=== PATIENT | female | born 1995 ===

== ENCOUNTER 2022-04-01 09:10 | Outpatient (CLI) | payer OTHER | END 2022-04-01 11:15 | disposition home or self-care (01) | LOC: PRENATAL 09:10 | PROVIDERS: ATTEND Obstetrics & Gynecology Maternal & Fetal Medicine | DX: O35.0XX0 Maternal care for (suspected) central nervous system malformation in fetus, not applicable or unspecified (principal); O35.3XX0 Maternal care for (suspected) damage to fetus from viral disease in mother, not applicable or unspecified; O34.219 Maternal care for unspecified type scar from previous cesarean delivery; Z3A.25 25 weeks gestation of pregnancy ==

== ENCOUNTER 2022-04-07 09:36 | Emergency (ER) | payer OTHER ==
[~2022-04-07] VITALS: Ht 157.5 cm; Wt 57.6 kg
[2022-04-07] MEDS ORDERED: PRENA1 CHEW TA1.4 MG (10:38)
== END 2022-04-07 13:20 | disposition home or self-care (01) ==
LOC: ER 09:36
DX: O99.512 Diseases of the respiratory system complicating pregnancy, second trimester (principal); Z3A.26 26 weeks gestation of pregnancy; J06.9 Acute upper respiratory infection, unspecified; U07.1 COVID-19

== ENCOUNTER 2022-06-27 22:07 | Inpatient (IN) | payer OTHER ==
[~2022-06-27] VITALS: Ht 157.5 cm; Wt 64.4 kg
[~2022-06-27 22:07] MED LIST: PRENA1 CHEW TA1.4 MG
[2022-06-27] MEDS ORDERED: IRON236 MG PO (22:40)
[2022-07-01] MEDS ORDERED: SIMETHICONE80 MG PO (18:57)
[2022-07-01] MEDS ORDERED: COLACE100 MG PO (18:57)
[2022-07-01] MEDS ORDERED: IBU800 MG PO (18:57)
== END 2022-07-01 19:07 | disposition home or self-care (01) | DRG 788 ==
LOC: LDR 22:07 → OB/GYN 06-28 13:20
PROVIDERS: ADMIT Obstetrics & Gynecology; ATTEND Obstetrics & Gynecology
PROC: 4A1HXCZ Monitoring of Products of Conception, Cardiac Rate, External Approach (ICD-10-PCS; 2022-06-27)
PROC: 10D00Z1 Extraction of Products of Conception, Low, Open Approach (ICD-10-PCS; principal; 2022-06-28 09:00)
DX: O34.211 Maternal care for low transverse scar from previous cesarean delivery (principal); Z3A.38 38 weeks gestation of pregnancy; Z20.822 Contact with and (suspected) exposure to COVID-19; Z37.0 Single live birth

== ENCOUNTER 2025-04-19 05:11 | Day surgery (SDC) | payer OTHER ==
[2025-04-11 09:59] LABS: PH,URINE 7.5 (5.0-8.0); URINE APPEARANCE Clear; URINE BILIRRUBIN Negative (NEGATIVE); URINE BLOOD Negative; URINE COLOR Yellow; URINE GLUCOSE Negative (NEGATIVE); URINE KETONE Negative (NEGATIVE); URINE LEUKOCYTE Negative; URINE NITRATE Negative; URINE PROTEIN Negative (NEGATIVE); URINE UROBILINOGEN 0.2 E.U./dl
[2025-04-11 10:04] LABS: URINE BACTERIA 4797.6 uL (0.0-1933); URINE EPITHELIAL CELLS 44.4 uL (0.0-38.8); URINE RBC 6.1 uL (0.0-20.8); URINE WBC 24.3 uL (0.0-23.2)
[2025-04-11 10:13] LABS: BASO % 1.2 % (0.1-1.2); EOS # 0.36 (0.04-0.54); EOS % 7.1 % (0.7-7.0); HEMATOCRIT 37.8 % (34.1-44.9); HEMOGLOBIN 12.7 g/dL (11.2-15.7); LYMPH # 1.71 (1.18-3.74); LYMPH % 33.9 % (19.3-53.1); MEAN CORPUSCULAR HEMOGLOBIN 27.9 pg (25.6-32.2); MONO # 0.33 (0.24-0.82); MONO % 6.5 % (4.7-12.5); NEUT # 2.56 (1.56-6.13); NEUT % 50.7 % (34.0-71.1); PLATELET COUNT 282 K/uL (163-369); RED BLOOD COUNT 4.56 M/uL (3.93-5.22); RED CELL DISTRIBUTION WIDTH 13.2 % (11.6-14.4)
[2025-04-11 10:25] LABS: INR 0.99; PARTIAL THROMBOPLASTIN TIME 30.9 SECONDS (22.0-34.0); PROTHROMBIN TIME 10.8 SECONDS (9.0-11.5)
[2025-04-11 10:28] LABS: URINE CAST 0.44 uL (0.0-1.40)
[2025-04-11 10:49] LABS: ALBUMIN 3.9 gm/dL (3.4-5.0); BILIRUBIN TOTAL 0.68 mg/dL (0.3-1.2); CALCIUM 8.9 mg/dL (8.5-10.1); CREATININE SERUM 0.71 mg/dL (0.55-1.02); GFR 96.66; GLOBULINA 3.7 G/DL (2.4-3.5); POTASSIUM 3.96 mEq/L (3.5-5.1); TOTAL PROTEIN 7.6 gm/dL (6.4-8.2); TSH 0.83 uIU/mL (0.358-3.74)
[~2025-04-19 05:11] MED LIST changes: +COLACE100 MG PO; +IBU800 MG PO; +IRON236 MG PO; +SIMETHICONE80 MG PO
[2025-04-19] MEDS ORDERED: CEFOXITIN SODIUM 2,000 MG VIAL IV ONE (07:33)
[2025-04-19] MEDS ORDERED: POVIDONE-IODINE 118 ML BOTT TOP ONE (09:30)
[2025-04-19] MEDS ORDERED: PROMETHAZINE HCL 50 MG/ML AMPUL IM ONE (10:30)
[2025-04-19] MEDS ORDERED: MORPHINE SULFATE 4 MG/ML VIAL IV PRN (10:30)
[2025-04-19] MEDS ORDERED: NAPR500T14 PO (10:34)
[2025-04-19] MEDS ORDERED: MONDOXYNE NL100 MG PO (10:34)
== END 2025-04-19 15:10 | disposition home or self-care (01) ==
LOC: CIR.AMB 05:11
PROVIDERS: ATTEND Obstetrics & Gynecology
DX: D25.0 Submucous leiomyoma of uterus (principal); N84.0 Polyp of corpus uteri; N92.0 Excessive and frequent menstruation with regular cycle